=== PATIENT | male | born 1935 | race American Indian/Alaskan Native ===

== ENCOUNTER 2018-09-01 12:04 | Day surgery (SDC) | payer BC, MEDICARE ==
[~2018-09-01 12:04] MED LIST: IOPIDINE ONE; MYDRIACYL ONE; NEOFRIN ONE
[2018-09-01] MEDS ORDERED: NEOFRIN OD ONE (12:26)
[2018-09-01] MEDS ORDERED: MYDRIACYL OD ONE (12:26)
[2018-09-01] MEDS ORDERED: IOPIDINE OD ONE ×2 (12:26→13:26)
[2018-09-01 13:21] VITALS: BP 130/67
== END 2018-09-01 13:26 | disposition home or self-care (01) ==
LOC: OR 12:04
PROVIDERS: ATTEND Specialist
DX: H26.491 Other secondary cataract, right eye (principal); Z79.899 Other long term (current) drug therapy; Z98.41 Cataract extraction status, right eye; Z98.42 Cataract extraction status, left eye; Z85.46 Personal history of malignant neoplasm of prostate; Z72.89 Other problems related to lifestyle; Z98.890 Other specified postprocedural states; Z86.73 Personal history of transient ischemic attack (TIA), and cerebral infarction without residual deficits

== ENCOUNTER 2018-09-08 11:35 | Day surgery (SDC) | payer BC, MEDICARE ==
[2018-09-08] MEDS ORDERED: NEOFRIN OS ONE (11:42)
[2018-09-08] MEDS ORDERED: MYDRIACYL OS ONE (11:42)
[2018-09-08] MEDS ORDERED: IOPIDINE OS ONE (11:42)
[2018-09-08 14:46] VITALS: BP 120/70
== END 2018-09-08 11:36 | disposition home or self-care (01) ==
LOC: OR 11:35
PROVIDERS: ATTEND Specialist
DX: H26.492 Other secondary cataract, left eye (principal); Z79.899 Other long term (current) drug therapy; Z98.41 Cataract extraction status, right eye; Z98.42 Cataract extraction status, left eye; Z85.46 Personal history of malignant neoplasm of prostate; Z72.89 Other problems related to lifestyle; Z80.8 Family history of malignant neoplasm of other organs or systems; Z98.890 Other specified postprocedural states; Z86.73 Personal history of transient ischemic attack (TIA), and cerebral infarction without residual deficits